=== PATIENT | male | born 1965 | race Hispanic/Latino ===

== ENCOUNTER 2018-05-08 17:05 | Emergency (ER) | payer SELFPAY ==
[~2018-05-08] VITALS: Ht 167.6 cm; Wt 81.6 kg
[~2018-05-08 17:05] MED LIST: ATIVAN1 MG ORAL; DILANTIN100 MG ORAL; DILANTIN30 MG ORAL
[2018-05-08] MEDS ORDERED: KEPPRA500 M4 ORAL ×2 (17:07→19:11)
[2018-05-08 17:22] VITALS: BP 148/74
[2018-05-08] MEDS ORDERED: LORazepam Inj 2mg/ml 1ml IV ONE (17:45)
[2018-05-08] MEDS ORDERED: levETIRAcetam 500 MG in D5W 110 ML IV ONE (17:45)
--- NOTE | 2018-05-08 17:45 | Emergency Room Report ---
History of Present Illness General Chief Complaint: Seizure Source: Patient, Medical Record, EMS Present Illness HPI 53-year-old male presents ED for evaluation. Status post seizure at bus stop today. Witnessed. No head injury. Upon arrival patient is alert oriented 3. History of seizure. Takes medication. Does not know the names of them. Patient drank alcohol yesterday and today. Possibly skipped his medication today. Denies headache. Denies fevers or chills. Denies neck stiffness. No other aggravating relieving factors. Denies any other associated symptoms Allergies: Coded Allergies: No Known Allergies (Unverified , 02/10/14) UNABLE TO ASSESS (Unverified , 05/08/18) Patient History Past Medical History: HTN, seizures Past Surgical History: none Pertinent Family History: none Social History: Denies: smoking, alcohol use, drug use Immunizations: UTD Reviewed Nursing Documentation: PMH: Agreed; PSxH: Agreed Nursing Documentation-PMH Past Medical History: No History, Except For Hx Hypertension: Yes History Of Psychiatric Problem: No - alcohol abuse Hx Seizures: Yes Review of Systems All Other Systems: negative except mentioned in HPI Physical Exam Vital Signs Date Time Temp Pulse Resp B/P (MAP) Pulse Ox O2 Delivery O2 Flow Rate FiO2 05/08/18 17:05 98.3 78 16 158/100 98 Room Air 98.2 05/08/18 17:22 2.0 Sp02 EP Interpretation: reviewed, normal General Appearance: no apparent distress, alert, GCS 15, non-toxic Head: normocephalic, atraumatic Eyes: bilateral eye normal inspection, bilateral eye PERRL ENT: hearing grossly normal, normal pharynx, no angioedema, normal voice Neck: full range of motion, supple/symm/no masses Respiratory: chest non-tender, lungs clear, normal breath sounds, speaking full sentences Cardiovascular #1: no edema, tachycardia Cardiovascular #2: 2+ carotid (R), 2+ carotid (L), 2+ radial (R), 2+ radial (L) , 2+ dorsalis pedis (R), 2+ dorsalis pedis (L) Gastrointestinal: normal bowel sounds, non tender, soft, non-distended, no guarding, no rebound Rectal: deferred Genitourinary: normal inspection, no CVA tenderness Musculoskeletal: back normal, gait/station normal, normal range of motion, non- tender Neurologic: alert, oriented x3, responsive, motor strength/tone normal, sensory intact, speech normal Psychiatric: judgement/insight normal, memory normal, mood/affect normal, no suicidal/homicidal ideation Reflexes: 3+ bicep (R), 3+ bicep (L), 3+ tricep (R), 3+ tricep (L), 3+ knee (R) , 3+ knee (L) Skin: normal color, no rash, warm/dry, well hydrated Lymphatic: no adenopathy Medical Decision Making Diagnostic Impression: Primary Impression: Alcohol abuse Additional Impression: Seizure disorder ER Course Hospital Course 53-year-old M presents to ED status post seizure. h/o ETOH abuse Differential diagnosis includes- breakthrough seizure, alcohol abuse, noncompliance with medication Clinical course Patient placed on stretcher. Initial history and physical I ordered labs, IV fluids, Keppra, CT brain EKG - sinus tachycardia, no acute ischemic changes interpreted by wy Labs-electrolytes okay, no leukocytosis, hemoglobin/hematocrit stable. Alcohol level < 3 Patient given Ativan, Keppra, IV fluids. Sinus tachycardia resolved. Patient allowed to rest is now awake alert oriented x3. ambulating without difficulty. Patient safe for discharge. Does not have a PMD. We'll provide PMD referrals. Provide prescriptions for Librium and Keppra Diagnosis - alcohol abuse, seizure disorder stable and discharged to home. Followup with PMD. Return to ED if symptoms recur or worsen Labs Test 05/08/18 17:23 White Blood Count 11.1 K/UL (4.8-10.8) Red Blood Count 5.15 M/UL (4.70-6.10) Hemoglobin 15.8 G/DL (14.2-18.0) Hematocrit 47.1 % (42.0-52.0) Mean Corpuscular Volume 91 FL (80-99) Mean Corpuscular Hemoglobin 30.6 PG (27.0-31.0) Mean Corpuscular Hemoglobin Concent 33.5 G/DL (32.0-36.0) Red Cell Distribution Width 12.2 % (11.6-14.8) Platelet Count 142 K/UL (150-450) Mean Platelet Volume 10.2 FL (6.5-10.1) Neutrophils (%) (Auto) 44.8 % (45.0-75.0) Lymphocytes (%) (Auto) 40.3 % (20.0-45.0) Monocytes (%) (Auto) 7.4 % (1.0-10.0) Eosinophils (%) (Auto) 6.4 % (0.0-3.0) Basophils (%) (Auto) 1.2 % (0.0-2.0) Sodium Level 143 MMOL/L (136-145) Potassium Level 4.0 MMOL/L (3.5-5.1) Chloride Level 106 MMOL/L (98-107) Carbon Dioxide Level 24 MMOL/L (21-32) Anion Gap 13 mmol/L (5-15) Blood Urea Nitrogen 11 mg/dL (7-18) Creatinine 1.4 MG/DL (0.55-1.30) Estimat Glomerular Filtration Rate 52.8 mL/min (>60) Glucose Level 148 MG/DL (74-106) Calcium Level 9.0 MG/DL (8.5-10.1) Total Bilirubin 0.3 MG/DL (0.2-1.0) Aspartate Amino Transf (AST/SGOT) 78 U/L (15-37) Alanine Aminotransferase (ALT/SGPT) 95 U/L (12-78) Alkaline Phosphatase 127 U/L (46-116) Total Protein 8.0 G/DL (6.4-8.2) Albumin 3.3 G/DL (3.4-5.0) Globulin 4.7 g/dL Albumin/Globulin Ratio 0.7 (1.0-2.7) Salicylates Level 0.9 ug/mL (2.8-20) Urine Opiates Screen Negative (NEGATIVE) Acetaminophen Level < 2 MCG/ML (10-30) Urine Barbiturates Screen Negative (NEGATIVE) Phenytoin (Dilantin) Level < 0.5 ug/mL (10-20) Phencyclidine (PCP) Screen Negative (NEGATIVE) Urine Amphetamines Screen Negative (NEGATIVE) Urine Benzodiazepines Screen Negative (NEGATIVE) Urine Cocaine Screen Negative (NEGATIVE) Urine Marijuana (THC) Screen Negative (NEGATIVE) Serum Alcohol < 3 mg/dL EKG Diagnostic Results Rate: tachycardiac Rhythm: NSR ST Segments: no acute changes ASA given to the pt in ED: No Rhythm Strip Diag. Results EP Interpretation: yes Rhythm: NSR, no PVC's, no ectopy Last Vital Signs Date Time Temp Pulse Resp B/P (MAP) Pulse Ox O2 Delivery O2 Flow Rate FiO2 05/08/18 17:22 117 30 Room Air 05/08/18 17:22 98.2 148/74 96 2.0 98.2 Status: improved Disposition: HOME, SELF-CARE Condition: Stable Scripts Levetiracetam (KEPPRA) 500 Mg Tablet 500 MG ORAL EVERY 12 HOURS for 7 Days, TAB 0 Refills Prov: Tayo Blair MD 05/08/18 Chlordiazepoxide (Chlordiazepoxide HCl) 25 Mg Capsule 25 MG ORAL THREE TIMES A DAY, #15 CAP 0 Refills Prov: Tayo Blair MD 05/08/18 Referrals: NOT CHOSEN IPA/,REFERRING (PCP) Tayo Blair MD May 08, 2018 17:45
[2018-05-08 17:47] LABS: ANION GAP 13 mmol/L (5-15); BLOOD UREA NITROGEN 11 mg/dL (7-18); CARBON DIOXIDE 24 MMOL/L (21-32); CHLORIDE 106 MMOL/L (98-107); CREATININE 1.4 MG/DL (0.55-1.30); SODIUM 143 MMOL/L (136-145)
[2018-05-08 17:50] LABS: BASOPHILS % (AUTO) 1.2 % (0.0-2.0); EOSINOPHILS % (AUTO) 6.4 % (0.0-3.0); HEMATOCRIT 47.1 % (42.0-52.0); HEMOGLOBIN 15.8 G/DL (14.2-18.0); LYMPHOCYTES % (AUTO) 40.3 % (20.0-45.0); MEAN CORPUSCULAR VOLUME 91 FL (80-99); MONOCYTES % (AUTO) 7.4 % (1.0-10.0); NEUTROPHILS % (AUTO) 44.8 % (45.0-75.0); PLATELET COUNT 142 K/UL (150-450); RED BLOOD COUNT 5.15 M/UL (4.70-6.10); RED CELL DISTRIBUTION WIDTH 12.2 % (11.6-14.8); WHITE BLOOD COUNT 11.1 K/UL (4.8-10.8)
[2018-05-08 17:53] LABS: ALANINE AMINOTRANSFERASE 95 U/L (12-78); ALBUMIN 3.3 G/DL (3.4-5.0); ALBUMIN/GLOBULIN RATIO 0.7 (1.0-2.7); ALKALINE PHOSPHATASE 127 U/L (46-116); ASPARTATE AMINO TRANSFERASE 78 U/L (15-37); BILIRUBIN,TOTAL 0.3 MG/DL (0.2-1.0)
[2018-05-08] MEDS ORDERED: LIBRIUM25 MG ORAL (19:11)
[2018-05-08 19:27] VITALS: BP 133/76
== END 2018-05-08 19:27 | disposition home or self-care (01) ==
LOC: EDBD 17:05 → EMR 17:26
DX: F10.10 Alcohol abuse, uncomplicated (principal); G40.909 Epilepsy, unspecified, not intractable, without status epilepticus; I10 Essential (primary) hypertension
CPT/HCPCS: 36415; 80053; 80185; 80307; 85025; 93005; 96361; 96365; 96375; 99284; G0480; J1953; 80329

== ENCOUNTER 2018-10-04 11:55 | Emergency (ER) | payer MEDICARE ==
[~2018-10-04] VITALS: Ht 170.2 cm; Wt 99.8 kg
[~2018-10-04 11:55] MED LIST changes: +KEPPRA500 M4 ORAL; +LIBRIUM25 MG ORAL
--- NOTE | 2018-10-04 12:05 | NUR ---
ED Nurse Note: Pt brought in by ambulance from the street due to S/P seizure x 60 second and witnessed by bystanders/friends. No head and oral trauma. Pt came in AAO x4, following commands with non labored breathing. Sinus tach on the monitor.
[2018-10-04] MEDS ORDERED: Phenytoin 500 MG in NS 110 ML IV ONE (12:15)
[2018-10-04] MEDS ORDERED: LORazepam Inj 2mg/ml 1ml IV ONE (12:15)
[2018-10-04] MEDS ORDERED: Phenytoin 100mg cap ORAL ONE (12:15)
[2018-10-04] MEDS ORDERED: levETIRAcetam 500 MG in D5W 110 ML IV ONE (12:15)
--- NOTE | 2018-10-04 12:17 | Emergency Room Report ---
History of Present Illness General Chief Complaint: Seizure Source: Patient Present Illness HPI 53yo M w/ h/o sz disorder with a seizure disorder presents with witnessed seizure, reports he only takes Dilantin, not Keppra. Also reports she's been compliant with it. He does appear somewhat postictal and slightly confused. Allergies: Coded Allergies: No Known Allergies (Unverified , 02/10/14) UNABLE TO ASSESS (Unverified , 05/08/18) Patient History Limited by: medical condition Past Medical History: see triage record Reviewed Nursing Documentation: PMH: Agreed; PSxH: Agreed Nursing Documentation-PMH Past Medical History: No History, Except For Hx Hypertension: Yes Hx Seizures: Yes Review of Systems All Other Systems: negative except mentioned in HPI Physical Exam Vital Signs Date Time Temp Pulse Resp B/P (MAP) Pulse Ox O2 Delivery O2 Flow Rate FiO2 10/04/18 11:55 98.6 118 20 154/91 96 Room Air Sp02 EP Interpretation: reviewed, normal General Appearance: no apparent distress, alert, non-toxic Head: normocephalic Eyes: bilateral eye normal inspection, bilateral eye PERRL, bilateral eye EOMI ENT: normal ENT inspection, hearing grossly normal, normal pharynx, no angioedema, normal voice, moist mucus membranes Neck: normal inspection, full range of motion, supple, supple/symm/no masses Respiratory: chest non-tender, lungs clear, normal breath sounds, chest symmetrical, palpation of chest normal Cardiovascular #1: normal peripheral pulses, regular rate, rhythm, tachycardia Cardiovascular #2: 2+ radial (R), 2+ radial (L) Gastrointestinal: normal inspection, non tender, soft, no mass, no guarding, no rebound Rectal: deferred Genitourinary: normal inspection, no CVA tenderness Musculoskeletal: back normal, gait/station normal, normal range of motion, non- tender, no calf tenderness Neurologic: alert, responsive, casing puller III-XII nml as tested, motor strength/tone normal, sensory intact, speech normal Psychiatric: mood/affect normal Skin: normal color, no rash, warm/dry, normal turgor Lymphatic: no adenopathy Medical Decision Making Homeless Attestation I, The treating physician Dr. Blackman, has assessed and agrees that patient is medically stable for discharge to an outpatient disposition. Diagnostic Impression: Primary Impression: Seizure disorder ER Course Patient was given IV and by mouth Dilantin, as his Dilantin level was undetectable. His heart rate improved with Ativan, I suspect he was postictal. He will be discharged. Diagnosis of medication noncompliance causing breakthrough seizure. EKG Diagnostic Results EKG Time: 12:20 EP Interpretation: no st-t changes, no twi's Rate: tachycardiac Rhythm: NSR ST Segments: no acute changes ASA given to the pt in ED: No Rhythm Strip Diag. Results Rhythm Strip Time: 13:19 EP Interpretation: yes Rate: 105 Rhythm: NSR Last Vital Signs Date Time Temp Pulse Resp B/P (MAP) Pulse Ox O2 Delivery O2 Flow Rate FiO2 10/04/18 11:55 98.6 118 20 154/91 96 Room Air Disposition: HOME, SELF-CARE Condition: Stable FRANCA BLACKMAN M.D Oct 04, 2018 12:17
[2018-10-04 12:30] VITALS: BP 126/74
--- NOTE | 2018-10-04 13:15 | NUR ---
ED Nurse Note: Called pharmacy for oral dilantin meds.
[2018-10-04 13:32] LABS: BASOPHILS % (AUTO) 1.2 % (0.0-2.0); EOSINOPHILS % (AUTO) 4.6 % (0.0-3.0); HEMATOCRIT 49.4 % (42.0-52.0); HEMOGLOBIN 15.5 G/DL (14.2-18.0); LYMPHOCYTES % (AUTO) 52.3 % (20.0-45.0); MEAN CORPUSCULAR VOLUME 97 FL (80-99); MONOCYTES % (AUTO) 9.4 % (1.0-10.0); NEUTROPHILS % (AUTO) 32.5 % (45.0-75.0); PLATELET COUNT 178 K/UL (150-450); RED CELL DISTRIBUTION WIDTH 13.4 % (11.6-14.8); WHITE BLOOD COUNT 12.8 K/UL (4.8-10.8)
[2018-10-04 13:35] LABS: ANION GAP 24 mmol/L (5-15); BLOOD UREA NITROGEN 10 mg/dL (7-18); CALCIUM 9.3 MG/DL (8.5-10.1); CARBON DIOXIDE 15 MMOL/L (21-32); CHLORIDE 102 MMOL/L (98-107); CREATININE 1.3 MG/DL (0.55-1.30); POTASSIUM 4.2 MMOL/L (3.5-5.1); SODIUM 141 MMOL/L (136-145)
--- NOTE | 2018-10-04 14:20 | NUR ---
ED Nurse Note: Pt resting on his bed with no acute distress. Sinus tach on the environmental monitoring specialist.
[2018-10-04 14:28] VITALS: BP 112/76
[2018-10-04] MEDS ORDERED: DILANTIN100 MG ORAL (14:29)
[2018-10-04 14:45] VITALS: BP 119/59
--- NOTE | 2018-10-04 14:45 | NUR ---
ED Nurse: Pt cleared by ER MD for discharge. Homeless DC papers signed and understood by pt. DC instructions/prescription given and explained to pt and verbalized understanding of teachings. ID band/IV removed. Pt is AAO x4, ambulatory and left with all belongings.
== END 2018-10-04 14:45 | disposition home or self-care (01) ==
LOC: EDUNIT# 11:55 → EDBD 11:55 → EMR 12:30
DX: G40.909 Epilepsy, unspecified, not intractable, without status epilepticus (principal); Z79.899 Other long term (current) drug therapy; I10 Essential (primary) hypertension
CPT/HCPCS: 36415; 80048; 80185; 82962; 85025; 93005; 96361; 96365; 96375; 99284; G0480; J1165; J1953; 80329

== ENCOUNTER → 2019-06-23 | Emergency (ER) | payer SELFPAY ==
[~2019-06-23] VITALS: Ht 172.7 cm; Wt 113.4 kg
[~2019-06-23] MED LIST changes: +Phenytoin 500 MG in NS 110 ML IVPB ONE; +levETIRAcetam 1,000mg/NS100ml 100 ML IVPB ONE
--- NOTE | 2019-06-23 13:25 | NUR ---
ED Nurse Note: [place] [address] [place], per ems, bystanders called as he was found unconsciousness with oral trauma, at this time, bleeding subsided. patient is reponsive to pain, nonverbal at this time. patient placed on a hospital gown, patient placed on a monitor. RICKY cox at bedside.
[2019-06-23 13:40] VITALS: BP 138/65
--- NOTE | 2019-06-23 13:44 | Emergency Room Report ---
History of Present Illness General Chief Complaint: Seizure Source: Medical Record, EMS Present Illness HPI 54-year-old male history of epilepsy history of seizures presents with altered mental status after witnessed seizure in the parking lot, patient is currently confused, unknown if compliant with Dilantin, occurrence just prior to arrival, no known aggravating relieving factors severity was severe, possibly lasting minutes, glucose in the field was 140 Allergies: Coded Allergies: No Known Allergies (Unverified , 02/10/14) UNABLE TO ASSESS (Unverified , 05/08/18) Patient History Limited by: medical condition - Postictal Past Medical History: see triage record Reviewed Nursing Documentation: PMH: Agreed; PSxH: Agreed Nursing Documentation-PMH Hx Hypertension: Yes Hx Seizures: Yes Review of Systems All Other Systems: limited - Postictal Physical Exam Vital Signs Date Time Temp Pulse Resp B/P (MAP) Pulse Ox O2 Delivery O2 Flow Rate FiO2 06/23/19 13:18 98.8 121 22 138/65 (89) 98 Room Air Sp02 EP Interpretation: reviewed, normal General Appearance: no apparent distress, non-toxic Head: normocephalic, atraumatic Eyes: bilateral eye PERRL, bilateral eye EOMI ENT: uvula midline, moist mucus membranes Neck: supple, thyroid normal, supple/symm/no masses Respiratory: lungs clear, no respiratory distress, no retraction, no accessory muscle use Cardiovascular #1: normal peripheral pulses, no edema, no gallop, no murmur, tachycardia Gastrointestinal: non tender, soft, no guarding, no rebound Musculoskeletal: normal inspection Neurologic: alert, responsive, other - Moving all 4 extremities Psychiatric: other - Confused Skin: no rash, warm/dry Medical Decision Making Diagnostic Impression: Primary Impression: Epileptic seizure, generalized Additional Impression: Non compliance with medical treatment ER Course 54 year old male hx of epilepsy, patient presents with recurrent sz Labs show non compliance with medications Keppra load, Phenytoin load Patient reevaluation 2:57 PM, patient is back to baseline Counseled patient that it is very important that he take his seizure medication because He may fall hit his head and have a brain bleed, patient is aware he states he just cannot afford the medication Disposition home with return precautions negative imaging, Laboratory Tests Test 06/23/19 13:30 White Blood Count 12.6 K/UL (4.8-10.8) H Red Blood Count 4.58 M/UL (4.70-6.10) L Hemoglobin 14.6 G/DL (14.2-18.0) Hematocrit 45.8 % (42.0-52.0) Mean Corpuscular Volume 100 FL (80-99) H Mean Corpuscular Hemoglobin 31.8 PG (27.0-31.0) H Mean Corpuscular Hemoglobin Concent 31.8 G/DL (32.0-36.0) L Red Cell Distribution Width 14.3 % (11.6-14.8) Platelet Count 125 K/UL (150-450) L Mean Platelet Volume 8.0 FL (6.5-10.1) Neutrophils (%) (Auto) 73.4 % (45.0-75.0) Lymphocytes (%) (Auto) 14.9 % (20.0-45.0) L Monocytes (%) (Auto) 8.7 % (1.0-10.0) Eosinophils (%) (Auto) 1.2 % (0.0-3.0) Basophils (%) (Auto) 1.9 % (0.0-2.0) Sodium Level 137 MMOL/L (136-145) Potassium Level 3.9 MMOL/L (3.5-5.1) Chloride Level 104 MMOL/L (98-107) Carbon Dioxide Level 16 MMOL/L (21-32) L Anion Gap 17 mmol/L (5-15) H Blood Urea Nitrogen 10 mg/dL (7-18) Creatinine 1.2 MG/DL (0.55-1.30) Estimate Glomerular Filtration Rate > 60 mL/min (>60) Glucose Level 134 MG/DL (74-106) H Calcium Level 8.2 MG/DL (8.5-10.1) L Total Bilirubin 3.0 MG/DL (0.2-1.0) H Direct Bilirubin 1.3 MG/DL (0.0-0.3) H Aspartate Amino Transferase (AST) 109 U/L (15-37) H Alanine Aminotransferase (ALT) 56 U/L (12-78) Alkaline Phosphatase 221 U/L (46-116) H Troponin I 0.010 ng/mL (0.000-0.056) Total Protein 8.9 G/DL (6.4-8.2) H Albumin 2.1 G/DL (3.4-5.0) L Globulin 6.8 g/dL Albumin/Globulin Ratio 0.3 (1.0-2.7) L Lipase 260 U/L (73-393) Salicylates Level < 0.2 ug/mL (2.8-20) L Acetaminophen Level < 2 MCG/ML (10-30) L Phenytoin (Dilantin) Level < 0.5 ug/mL (10-20) L Valproic Acid Level < 3 MCG/ML (50-100) L Carbamazepine (Tegretol) Level < 0.5 ug/mL (4.0-12.0) L Phenobarbital Level < 1.0 ug/mL (15-40) L Serum Alcohol < 3 mg/dL EKG Diagnostic Results EKG Time: 14:02 EP Interpretation: Sinus tachycardia, rate 107, QTc 558, no acute ST elevations , normal axis Rhythm Strip Diag. Results Rhythm Strip Time: 14:16 EP Interpretation: yes Rate: 104 Rhythm: other - Sinus Tachycardia Chest X-Ray Diagnostic Results Chest X-Ray Diagnostic Results : Chest X-Ray Ordered: Yes # of Views/Limited/Complete: 1 View Indication: Other - AMS EP Interpretation: Yes Interpretation: no consolidation, no effusion, no pneumothorax, no acute cardiopulmonary disease Impression: No acute disease Electronically Signed by: Alexi Esparza MD CT/MRI/US Diagnostic Results CT/MRI/US Diagnostic Results : Impression CT head: No acute processes CT C-spine: No acute processes Last Vital Signs Date Time Temp Pulse Resp B/P (MAP) Pulse Ox O2 Delivery O2 Flow Rate FiO2 06/23/19 13:40 98.8 95 22 138/65 98 Room Air Disposition: HOME, SELF-CARE Condition: Stable Scripts Levetiracetam (KEPPRA) 500 Mg Tablet 500 MG ORAL EVERY 12 HOURS for 30 Days, #60 TAB 0 Refills Prov: Alexi Esparza MD 06/23/19 Phenytoin Sodium Extended* (DILANTIN*) 100 Mg Capsule 100 MG ORAL THREE TIMES A DAY, #90 CAP 0 Refills Prov: Alexi Esparza MD 06/23/19 Referrals: [facility] [place] [facility] Patient Instructions: Seizure, Adult Additional Instructions: The patient was provided with discharge instructions, notified to follow-up with a primary care doctor and or specialist in the next 24-48 hours, and to return to the ED if they have worsening of their symptoms. Please note that this report is being documented using [employer] technology. This can lead to erroneous entry secondary to incorrect interpretation by the dictating instrument. Alexi Esparza MD Jun 23, 2019 13:43
--- NOTE | 2019-06-23 13:45 | NUR ---
ED Nurse Note: patient taken to CT via gurney with FURNACE SETTERWHITLEY YANG
[2019-06-23 13:49] LABS: BASOPHILS % (AUTO) 1.9 % (0.0-2.0); EOSINOPHILS % (AUTO) 1.2 % (0.0-3.0); HEMATOCRIT 45.8 % (42.0-52.0); HEMOGLOBIN 14.6 G/DL (14.2-18.0); LYMPHOCYTES % (AUTO) 14.9 % (20.0-45.0); MEAN CORPUSCULAR VOLUME 100 FL (80-99); MONOCYTES % (AUTO) 8.7 % (1.0-10.0); NEUTROPHILS % (AUTO) 73.4 % (45.0-75.0); PLATELET COUNT 125 K/UL (150-450); RED BLOOD COUNT 4.58 M/UL (4.70-6.10); RED CELL DISTRIBUTION WIDTH 14.3 % (11.6-14.8); WHITE BLOOD COUNT 12.6 K/UL (4.8-10.8)
--- NOTE | 2019-06-23 14:00 | NUR ---
ED Nurse Note: patient came back from ct, patient placed back on the monitor.
--- NOTE | 2019-06-23 14:04 | Diagnostic Imaging Report ---
Indication: Cough Technique: One view of the chest Comparison: none Findings: Lungs and pleural spaces are clear. The heart size is normal. Impression: No acute process
[2019-06-23 14:11] LABS: ANION GAP 17 mmol/L (5-15); BLOOD UREA NITROGEN 10 mg/dL (7-18); CALCIUM 8.2 MG/DL (8.5-10.1); CARBON DIOXIDE 16 MMOL/L (21-32); CHLORIDE 104 MMOL/L (98-107); CREATININE 1.2 MG/DL (0.55-1.30); POTASSIUM 3.9 MMOL/L (3.5-5.1); SODIUM 137 MMOL/L (136-145)
[2019-06-23 14:20] LABS: ALANINE AMINOTRANSFERASE 56 U/L (12-78); ALBUMIN 2.1 G/DL (3.4-5.0); ALBUMIN/GLOBULIN RATIO 0.3 (1.0-2.7); ALKALINE PHOSPHATASE 221 U/L (46-116); ASPARTATE AMINO TRANSFERASE 109 U/L (15-37)
[2019-06-23 14:22] LABS: BILIRUBIN,DIRECT 1.3 MG/DL (0.0-0.3)
--- NOTE | 2019-06-23 14:26 | Diagnostic Imaging Report ---
Indications: Altered mental status Technique: Spiral acquisitions obtained through the brain. Angled axial and coronal 5 x 5 mm slices were reconstructed. Total dose length product 1794 mGycm. CTDI vol(s) 74 mGy. Dose reduction achieved using automated exposure control Comparison: None. Findings: No acute intracranial hemorrhage or edema. No mass effect nor midline shift. Normal christiansen-white differentiation. Prominent cisterna magna, otherwise normal size ventricles and extra axial CSF spaces. Visualized orbits and sinuses are unremarkable. The mastoids are clear. Intact calvarium Impression: Negative The CT scanner at [facility] is accredited by the [employer] and the scans are performed using protocols designed to limit radiation exposure to as low as reasonably achievable to attain images of sufficient resolution adequate for diagnostic evaluation.
[2019-06-23 14:59] VITALS: BP 134/73
--- NOTE | 2019-06-23 15:02 | NUR ---
ED Nurse Note: [facility]A SENT TO LAB
--- NOTE | 2019-06-23 15:02 | NUR ---
HAND-OFF: Report given to JENNIFER/FRANCES MENDEZ.
[2019-06-23 15:22] LABS: APPEARANCE,URINE SLIGHTLY CLOUDY; BILIRUBIN, URINE NEGATIVE (NEGATIVE); GLUCOSE, URINE (UA) NEGATIVE (NEGATIVE); KETONES,URINE 1+ (NEGATIVE); LEUKOCYTE ESTERASE ,URINE NEGATIVE (NEGATIVE); NITRITE,URINE NEGATIVE (NEGATIVE); PH,URINE 5 (4.5-8.0); PROTEIN,URINE 2+ (NEGATIVE); UROBILINOGEN,URINE 4 MG/DL (0.0-1.0)
--- NOTE | 2019-06-23 15:32 | Diagnostic Imaging Report ---
Indication: Trauma, pain Technique: Spiral acquisitions obtained through the cervical spine. No IV contrast utilized. Multiplanar reconstructions were generated. Total dose length product 244 and 639 mGycm. CTDIvol(s) 9 and 34 mGy. Dose reduction achieved using automated exposure control. Comparison: none Findings: Bony alignment is normal. No prevertebral soft tissue swelling. Vertebral body heights are preserved. No acute fractures. No dislocations. At C5-6, there is mild degenerative disc narrowing. There is severe bilateral neural foraminal stenosis. Posterior disc bulge/osteophyte complex results in at least moderate stenosis. There is questionably a posterior disc protrusion at this level although this finding is probably artifactual; if real, however, there may be significant spinal canal narrowing. At C6-7, there is mild degenerative disc narrowing. There is mild circumferential annular bulge and posterior osteophyte complex which results in mild narrowing of the spinal canal. Posterior osteophytes may also slightly impinge upon the left lateral recess. There is mild narrowing of the left neural foramen. At the remaining disc levels, no significant disc bulge or protrusion, spinal stenosis, or neural foraminal narrowing. Cervical nodes are abundant and prominent. The thyroid is unremarkable. The included lung apices are clear. The included upper aerodigestive tract is unremarkable. Impression: No acute bony trauma Degenerative changes as described above. Note that there is questionably significant posterior disc protrusion at C5-6. Suspect artifactual, but if real this may result in significant spinal canal stenosis The CT scanner at [facility] is accredited by the [employer] and the scans are performed using protocols designed to limit radiation exposure to as low as reasonably achievable to attain images of sufficient resolution adequate for diagnostic evaluation.
[2019-06-23 15:43] LABS: COLOR,URINE YELLOW
[2019-06-23 16:59] VITALS: BP 126/66
--- NOTE | 2019-06-24 16:24 | Cardiology Report ---
APPROVED REPORT EKG Measurement Heart [id number] Sinus tachycardia Possible Left atrial enlargement Nonspecific ST abnormality Prolonged QT Abnormal ECG
== END | disposition home or self-care (01) ==
LOC: EDUNIT# 13:15 → EDBD 13:25 → EMR 14:15
DX: G40.909 Epilepsy, unspecified, not intractable, without status epilepticus (principal); I10 Essential (primary) hypertension; Z91.14 Patient's other noncompliance with medication regimen; R00.0 Tachycardia, unspecified
CPT/HCPCS: 36415; 70450; 71045; 72125; 80053; 80156; 80164; 80184; 80185; 80307; 81003; 82248; 83690; 84484; 85025; 87086; 93005; 96361; 96365; 96375; 99284; G0480; J1165; J1953; J7030

== ENCOUNTER 2019-06-30 11:42 | Emergency (ER) | payer SELFPAY ==
[~2019-06-30] VITALS: Ht 172.7 cm; Wt 83.9 kg
[~2019-06-30 11:42] MED LIST changes: -Phenytoin 500 MG in NS 110 ML IVPB ONE; -levETIRAcetam 1,000mg/NS100ml 100 ML IVPB ONE
[2019-06-30 11:45] VITALS: BP 135/82
--- NOTE | 2019-06-30 11:45 | NUR ---
ED Nurse Note: Pt brought in by JAMISON [facility] [address] for etoh intoxication. HANNAHD states they [place] up pt from the alley. JAMISON notes blood sugar en route at 125. Pt denies drinking any alcohol today and cannot state when his last drink was. Pt is aox4, breathing normal, speaking in full sentences and ambulatory with steady gait. Will continue to monitor.
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
--- NOTE | 2019-06-30 13:21 | NUR ---
ED Nurse Note: Pt labs drawn, sent to lab and radio officer took pt to CT.
[2019-06-30 13:45] VITALS: BP 148/76
--- NOTE | 2019-06-30 13:45 | Diagnostic Imaging Report ---
Indications: Altered mental status Technique: Spiral acquisitions obtained through the brain. Angled axial and coronal 5 x 5 mm slices were reconstructed. Total dose length product 1363 mGycm. CTDI vol(s) 62 mGy. Dose reduction achieved using automated exposure control Comparison: None. Findings: No acute intracranial hemorrhage or edema. No mass effect nor midline shift. Normal christiansen-white differentiation. Normal size ventricles and extra-axial CSF spaces. Visualized orbits and sinuses are unremarkable. The calvarium is intact. Impression: Negative. No acute intracranial bleed or mass effect. The CT scanner at [facility] is accredited by the [employer] and the scans are performed using protocols designed to limit radiation exposure to as low as reasonably achievable to attain images of sufficient resolution adequate for diagnostic evaluation.
[2019-06-30 13:57] LABS: ANION GAP 8 mmol/L (5-15); BLOOD UREA NITROGEN 8 mg/dL (7-18); CALCIUM 8.2 MG/DL (8.5-10.1); CARBON DIOXIDE 22 MMOL/L (21-32); CHLORIDE 104 MMOL/L (98-107); CREATININE 0.8 MG/DL (0.55-1.30); POTASSIUM 4.7 MMOL/L (3.5-5.1); SODIUM 134 MMOL/L (136-145)
[2019-06-30 13:58] LABS: HEMOGLOBIN 12.4 G/DL (14.2-18.0); MEAN CORPUSCULAR VOLUME 97 FL (80-99); PLATELET COUNT 17 K/UL (150-450); RED BLOOD COUNT 3.84 M/UL (4.70-6.10); RED CELL DISTRIBUTION WIDTH 13.9 % (11.6-14.8); WHITE BLOOD COUNT 7.1 K/UL (4.8-10.8)
--- NOTE | 2019-06-30 14:40 | NUR ---
ED Nurse Note: Pt able to ambulate with steady gait to restroom.
--- NOTE | 2019-06-30 14:55 | NUR ---
ED Nurse Note: Pt platelet count noted at 17. Blood redraw done at bedside and sent blood specimen to lab.
[2019-06-30 15:17] LABS: BASOPHILS % (AUTO) 1.9 % (0.0-2.0); EOSINOPHILS % (AUTO) 2.3 % (0.0-3.0); HEMATOCRIT 38.2 % (42.0-52.0); HEMOGLOBIN 13.5 G/DL (14.2-18.0); LYMPHOCYTES % (AUTO) 19.9 % (20.0-45.0); MEAN CORPUSCULAR VOLUME 92 FL (80-99); MONOCYTES % (AUTO) 8.3 % (1.0-10.0); NEUTROPHILS % (AUTO) 67.6 % (45.0-75.0); PLATELET COUNT 103 K/UL (150-450); RED BLOOD COUNT 4.13 M/UL (4.70-6.10); RED CELL DISTRIBUTION WIDTH 12.4 % (11.6-14.8); WHITE BLOOD COUNT 9.5 K/UL (4.8-10.8)
--- NOTE | 2019-06-30 15:36 | NUR ---
ED Nurse Note: Upon waiting for pt repeat lab, pt was found with snoring respirations and unresponsive. OPA was placed by ERMFlor. IV site established. Pt returned to normal breathing pattern, vss and began infusing Keppra. Will wait for further orders by ERMFlor.
[2019-06-30 15:40] VITALS: BP 120/47
[2019-06-30] MEDS ORDERED: levETIRAcetam 1,000mg/NS100ml 100 ML IVPB ONE (15:45)
--- NOTE | 2019-06-30 16:20 | NUR ---
ED Nurse Note: Pt is awake, alert and oriented x4 at this time, resting comfortably in bed. Pt breathing is normal and unlabored. Will continue to monitor.
[2019-06-30] MEDS ORDERED: KEPPRA500 M4 ORAL (16:35)
[2019-06-30] MEDS ORDERED: FOLIC ACID1 MG ORAL (16:36)
[2019-06-30] MEDS ORDERED: VITAMIN B-1100 MG ORAL (16:36)
[2019-06-30 16:45] VITALS: BP 128/65
--- NOTE | 2019-06-30 16:45 | NUR ---
ED Nurse Note: Pt cleared by ERMD for discharge after monitoring. DC instructions/prescription was given and explained to pt. Pt verbalized understanding of discharge instructions. Pt verbalized back instructions and importance of medication compliance to ERMD and nurse two seperate times. ID band and IV removed. Pt is AAO x4, ambulatory with steady gait and left with all personal belongings.
== END 2019-06-30 16:45 | disposition home or self-care (01) ==
LOC: EDBD 11:42 → EDUNIT# 11:42 → EMR 13:53
DX: F10.129 Alcohol abuse with intoxication, unspecified (principal); G40.909 Epilepsy, unspecified, not intractable, without status epilepticus; D69.6 Thrombocytopenia, unspecified
CPT/HCPCS: 36415; 70450; 80048; 85007; 85025; 96374; 99284

== ENCOUNTER 2020-01-12 09:38 | Emergency (ER) | payer SELFPAY ==
[~2020-01-12] VITALS: Ht 175.3 cm; Wt 99.8 kg
[~2020-01-12 09:38] MED LIST changes: +FOLIC ACID1 MG ORAL; +VITAMIN B-1100 MG ORAL
[2020-01-12 09:41] VITALS: BP 125/56
[2020-01-12] MEDS ORDERED: levETIRAcetam 500mg/NS100ml 110 ML IV ONE (10:00)
[2020-01-12] MEDS ORDERED: LORazepam Inj 2mg/ml 1ml IV ONE (10:00)
[2020-01-12 10:31] LABS: HEMATOCRIT 40.4 % (42.0-52.0); HEMOGLOBIN 12.6 G/DL (14.2-18.0); MEAN CORPUSCULAR VOLUME 99 FL (80-99); PLATELET COUNT 64 K/UL (150-450); RED BLOOD COUNT 4.09 M/UL (4.70-6.10); RED CELL DISTRIBUTION WIDTH 17.2 % (11.6-14.8); WHITE BLOOD COUNT 6.5 K/UL (4.8-10.8)
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
[2020-01-12 10:40] LABS: ANION GAP 15 mmol/L (5-15); BLOOD UREA NITROGEN 11 mg/dL (7-18); CALCIUM 8.1 MG/DL (8.5-10.1); CARBON DIOXIDE 19 MMOL/L (21-32); CHLORIDE 105 MMOL/L (98-107); POTASSIUM 3.5 MMOL/L (3.5-5.1); SODIUM 138 MMOL/L (136-145)
--- NOTE | 2020-01-12 10:46 | Diagnostic Imaging Report ---
EXAM: CT CT Head no Contrast INDICATION: Seizure. TECHNIQUE: Axial images of the brain were obtained with subsequent sagittal and coronal reformats. All CT scans at this facility are performed using dose modulation techniques as appropriate to a performed exam including the following: automated exposure control with adjustment of the mA and/or kV according to patient size. COMPARISON STUDY: None. RADIATION DOSE: CTDIvol: 53.4 mGy DLP: 1098.9 mGy-cm Dose information generated by the CT scanner is available in PACS. FINDINGS: There is normal symmetry and normal christiansen-white differentiation. There is no acute large territory cortical infarct, hemorrhage, mass effect or shift. Ventricles and cisterns as well as brainstem and posterior fossa appear unremarkable. The sellar region is normal. There is an old fracture medial wall right orbit. Minimal mucosal thickening noted in the ethmoid air cells. There is a small amount of fluid in the left mastoid. Bony calvarium intact. IMPRESSION: No acute intracranial abnormality. Old fracture medial wall right orbit. Mild ethmoid and left mastoid airspace disease.
[2020-01-12 10:52] LABS: ALANINE AMINOTRANSFERASE 64 U/L (12-78); ALBUMIN 2.4 G/DL (3.4-5.0); ALBUMIN/GLOBULIN RATIO 0.5 (1.0-2.7); ALKALINE PHOSPHATASE 266 U/L (46-116); ASPARTATE AMINO TRANSFERASE 94 U/L (15-37); BILIRUBIN,TOTAL 2.8 MG/DL (0.2-1.0)
[2020-01-12 11:32] LABS: BILIRUBIN,DIRECT 1.4 MG/DL (0.0-0.3)
[2020-01-12 14:18] VITALS: BP 125/56
== END 2020-01-12 14:18 | disposition home or self-care (01) ==
LOC: EDBD 09:38 → EMR 10:42
DX: G40.909 Epilepsy, unspecified, not intractable, without status epilepticus (principal); I10 Essential (primary) hypertension; R00.0 Tachycardia, unspecified
CPT/HCPCS: 36415; 70450; 80053; 82248; 82962; 85007; 85025; 93005; 96361; 96374; 96375; 99284; G0480; J1953; J7030

== ENCOUNTER 2020-02-07 12:06 | Inpatient (IN) | payer MEDICAID ==
[~2020-02-07] VITALS: Ht 170.2 cm; Wt 105.0 kg
[2020-02-07 12:11] VITALS: BP 150/96
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
--- NOTE | 2020-02-07 12:12 | NUR ---
ED Nurse Note: ERMD aware of pt's conditon.
[2020-02-07] MEDS ORDERED: Morphine Sulfate 4mg/ml Inj (IV USE ONLY) IVP ONE (12:30)
[2020-02-07] MEDS ORDERED: Thiamine 100mg tab ORAL ONE (12:30)
[2020-02-07] MEDS ORDERED: Tetanus/Diptheria/Pertussis IM ONE (12:30)
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
[2020-02-07 12:47] LABS: HEMATOCRIT 37.7 % (42.0-52.0); HEMOGLOBIN 12.3 G/DL (14.2-18.0); MEAN CORPUSCULAR VOLUME 96 FL (80-99); PLATELET COUNT 63 K/UL (150-450); RED BLOOD COUNT 3.93 M/UL (4.70-6.10); RED CELL DISTRIBUTION WIDTH 15.9 % (11.6-14.8)
--- NOTE | 2020-02-07 12:55 | NUR ---
ED Nurse Note: Pt came back from CT in stable condition.
[2020-02-07 12:59] LABS: ANION GAP 7 mmol/L (5-15); BLOOD UREA NITROGEN 5 mg/dL (7-18); CALCIUM 8.3 MG/DL (8.5-10.1); CARBON DIOXIDE 28 MMOL/L (21-32); CHLORIDE 103 MMOL/L (98-107); POTASSIUM 3.6 MMOL/L (3.5-5.1); SODIUM 138 MMOL/L (136-145)
--- NOTE | 2020-02-07 13:03 | Diagnostic Imaging Report ---
EXAM: CT Head Without Intravenous Contrast CLINICAL HISTORY: PAIN TECHNIQUE: Axial computed tomography images of the head/brain without intravenous contrast. CTDI is 68.7 mGy and DLP is 1368.4 mGy-cm. One or more of the following dose reduction techniques were used: automated exposure control, adjustment of the mA and/or kV according to patient size, use of iterative reconstruction technique. COMPARISON: 01/12/20. FINDINGS: Brain: No intracranial hemorrhage or mass effect.. Ventricles: Unremarkable. No ventriculomegaly. Bones/joints: Unremarkable. No acute fracture. Soft tissues: Forehead contusions. Sinuses: Please see separately dictated facial CT. Mastoid air cells: Unremarkable as visualized. No mastoid effusion. IMPRESSION: No acute brain or skull injury. Please see separately dictated facial CT for other findings
--- NOTE | 2020-02-07 13:09 | Diagnostic Imaging Report ---
EXAM: CT Maxillofacial Without Intravenous Contrast CLINICAL HISTORY: PAIN TECHNIQUE: Axial computed tomography images of the face without intravenous contrast. CTDI is 10.5 mGy and DLP is 233.8 mGy-cm. One or more of the following dose reduction techniques were used: automated exposure control, adjustment of the mA and/or kV according to patient size, use of iterative reconstruction technique. COMPARISON: Facial CT of 04/02/[address] of 01/12/20 FINDINGS: There is a chronic fracture deformity of the nasal bridge, stable in alignment in the interval. There is a right medial orbital wall fracture deformity is seen on series 9, image 40. This is stable compared to the more recent head CT. There is no left maxillary sinus fracture to explain the intrasinus fluid. There had been fluid on the prior facial CT. Consider sinusitis, potentially related to periapical abscess of a left maxillary premolar. Generally extremely poor dentition with few remaining teeth. Right facial and perimandibular soft tissue swelling. No mandible fracture. No retrobulbar hematoma. IMPRESSION: No acute fracture. Left maxillary sinus fluid may reflect sinusitis, potentially related to periapical abscess of the left maxillary premolar. Right facial swelling.
[2020-02-07 13:11] LABS: INR 1.5 (0.9-1.1)
[2020-02-07 13:14] LABS: ALANINE AMINOTRANSFERASE 69 U/L (12-78); ALBUMIN 2.3 G/DL (3.4-5.0); ALBUMIN/GLOBULIN RATIO 0.5 (1.0-2.7); ALKALINE PHOSPHATASE 236 U/L (46-116); ASPARTATE AMINO TRANSFERASE 127 U/L (15-37)
[2020-02-07 13:16] LABS: BILIRUBIN,DIRECT 1.5 MG/DL (0.0-0.3)
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
--- NOTE | 2020-02-07 13:33 | Diagnostic Imaging Report ---
EXAM: XR Chest, 1 View CLINICAL HISTORY: COUGH TECHNIQUE: Frontal view of the chest. COMPARISON: CXR of 06/23/[address] cervical spine from today FINDINGS: Lungs/pleural space: Right hemithoracic opacification. There was a clear pleural effusion at the apex on the cervical spine CT. Cannot exclude coexisting basilar consolidation. Heart: Unremarkable. No cardiomegaly. Mediastinum: Unremarkable. Bones/joints: Degenerative changes of the spine and shoulders. IMPRESSION: Right hemithoracic opacification. There was a clear pleural effusion at the apex on the cervical spine CT. Cannot exclude coexisting basilar consolidation.
[2020-02-07] MEDS ORDERED: Hydrogen Peroxide 473ml Bottle TOPIC ONE ×2 (13:40→13:45)
--- NOTE | 2020-02-07 13:49 | NUR ---
ED Nurse Note: RN cleansed pt's face with hydrogen peroxide/NS, patted dry. RN also suctioned blood from pt's mouth. Pt is AAO x4 with no respiratory distress.
[2020-02-07] MEDS ORDERED: ceFAZolin 2gm/50ml Premix 50 ML IVPB SCH (14:00)
[2020-02-07 14:10] VITALS: BP 144/78
[2020-02-07] MEDS ORDERED: Unasyn 3gm Inj IV ONE (14:15)
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
--- NOTE | 2020-02-07 15:35 | NUR ---
ED Nurse Note: covid19 swab sent.
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
[2020-02-07] MEDS: Ampicillin/Sulbactam Sod 3 GM in NS 110 ML IVPB SCH (18:00)
[2020-02-07] MEDS: chlordiazePOXIDE 25mg Cap ORAL SCH (18:00)
--- NOTE | 2020-02-07 19:45 | NUR ---
HAND-OFF: Report given to ANDREA Gonsales. Patient's stable,plan of care endorsed.
--- NOTE | 2020-02-07 19:50 | NUR ---
NURSE NOTES: Received pt from ANDREA Antunez. Pt asleep but easily aroused. Bed in lowest position. Call light within reach. Will continue to monitor.
[2020-02-07 20:00] VITALS: BP 150/77
[2020-02-07] MEDS ORDERED: Heparin 5000 units/ml inj SUBQ SCH (21:00)
[2020-02-07] MEDS: Doxycycline Monohydrate 100mg ORAL SCH (21:26)
[2020-02-07] MEDS: Phenytoin 100mg cap ORAL SCH (21:26)
[2020-02-07] MEDS: ceFAZolin 2gm/50ml Premix 50 ML IVPB SCH (21:27)
[2020-02-08] VITALS: BP 143/69
[2020-02-08] MEDS: Ampicillin/Sulbactam Sod 3 GM in NS 110 ML IVPB SCH ×4 (00:27→20:00)
[2020-02-08 04:00] VITALS: BP 133/71
[2020-02-08] MEDS: ceFAZolin 2gm/50ml Premix 50 ML IVPB SCH ×3 (06:20→23:02)
[2020-02-08 06:54] LABS: HEMATOCRIT 36.5 % (42.0-52.0); HEMOGLOBIN 11.9 G/DL (14.2-18.0); MEAN CORPUSCULAR VOLUME 97 FL (80-99); PLATELET COUNT 58 K/UL (150-450); RED BLOOD COUNT 3.77 M/UL (4.70-6.10); WHITE BLOOD COUNT 5.6 K/UL (4.8-10.8)
[2020-02-08 07:38] LABS: ALANINE AMINOTRANSFERASE 57 U/L (12-78); ALBUMIN 2.2 G/DL (3.4-5.0); ALBUMIN/GLOBULIN RATIO 0.5 (1.0-2.7); ALKALINE PHOSPHATASE 233 U/L (46-116); ANION GAP 7 mmol/L (5-15); ASPARTATE AMINO TRANSFERASE 105 U/L (15-37); BILIRUBIN,TOTAL 3.4 MG/DL (0.2-1.0); BLOOD UREA NITROGEN 7 mg/dL (7-18); CARBON DIOXIDE 27 MMOL/L (21-32); CHLORIDE 105 MMOL/L (98-107); CREATININE 0.8 MG/DL (0.55-1.30); POTASSIUM 3.8 MMOL/L (3.5-5.1); SODIUM 139 MMOL/L (136-145)
[2020-02-08 07:55] LABS: BILIRUBIN,DIRECT 1.4 MG/DL (0.0-0.3)
[2020-02-08 08:00] VITALS: BP 147/83
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
--- NOTE | 2020-02-08 08:35 | NUR ---
NURSE NOTES: Called and left a message with Dr. Goodwin regarding pts abnormal labs. Awaiting call back.
[2020-02-08] MEDS: Doxycycline Monohydrate 100mg ORAL SCH ×2 (09:32→23:00)
[2020-02-08] MEDS: chlordiazePOXIDE 25mg Cap ORAL SCH ×3 (09:32→21:00)
[2020-02-08] MEDS: Phenytoin 100mg cap ORAL SCH ×2 (09:32→23:00)
[2020-02-08] MEDS: Thiamine 100mg tab ORAL SCH (09:33)
[2020-02-08] MEDS: HYDROcodone/Acetamin 5/325 tab ORAL PRN ×2 (09:37→17:11)
--- NOTE | 2020-02-08 12:01 | NUR ---
HAND-OFF: Report given to ANDREA Nelson. Pt stable.
--- NOTE | 2020-02-08 12:51 | NUR ---
BEDSIDE SWALLOW EVAL (formal report to follow) QUANTITATIVE ASSOCIATE BEDSIDE SWALLOW EVALUATION ORDERS RECEIVED FROM DR. HAYS. INITIAL IMPRESSIONS: MILD OROPHARYNGEAL PHASE DYSPHAGIA COMPOUNDED BY DENTAL ABSCESS EXACERBATED BY RIGHT FACIAL SWELLING/PAIN WITH REDUCED ORAL MOTOR ROM AND COORDINATION, PROLONGED AND REDUCED ORAL PREPARATION AND OROPHARYNGEAL TRANSIT TIMES, LARYNGEAL ELEVATION APPEARS SLIGHTLY REDUCED AND SUSPECT REDUCED PHARYNGEAL SENSATION. NO OVERT S/S OF ASPIRATION WITH COLD THIN LIQUIDS OR PUREE SOLIDS. OVERT S/S OF ASPIRATION WITH ROOM TEMPERATURE WATER. PATIENT HAS RISK FOR ASPIRATION GIVEN SUSPECT REDUCED PHARYNGEAL SENSATIONS AND TRAUMA RESULTING IN PAINFUL SWALLOWING/MASTICATION. PO TRIALS -APPLE JUICE VIA TSP WITH NO OVERT S/S OF ASPIRATION, INCOMPLETE LABIAL SEAL DUE TO SWELLING, LARYNGEAL ELEVATION APPEARS REDUCED UPON PALPATION. -THIN LIQUIDS (ROOM TEMP WATER) RESULTING IN IMMEDIATE OVERT S/S OF ASPIRATION, ANTERIOR SPILLAGE OF LIQUIDS OVER LIPS, STRONG COUGH RESPONSE. -ICE COLD THIN LIQUIDS RESULTING IN NO OVERT S/S OF ASPIRATION. -PUREE SOLIDS RESULTING IN NO OVERT S/S OF ASPIRATION, REDUCED A-P TRANSIT OF BOLUS, TRACE ORAL RESIDUALS PT CLEARED WITH SECOND SWALLOW. PATIENT UNABLE TO CONSUME SOLIDS CONSISTENCIES AT THIS TIME DUE TO FACIAL SWELLING/PAIN RESULTING IN NO ABILITY TO MASTICATE FOOD. RECOMMENDATIONS: 1. PUREE SOLIDS WITH THIN LIQUIDS; NO STRAWS, DISPOSABLE TRAY; PLEASE SEND EXTRA ICE WITH MEALS. --->PATIENT REPORTS ANY FOODS WITH SALT CAUSE PAIN IN ORAL CAVITY/BOT. --->MAY NEED NO SALT ADDED DIET?? DEFER TO RD. 2. ENCOURAGE ORAL CARE/HYGIENE S/P ALL MEALS DUE TO TRACE RESIDUALS OF FOOD IN ORAL CAVITY S/P PO. 3. QUANTITATIVE ASSOCIATE TO F/U 4-5X A WEEK X 1 WEEK. QUANTITATIVE ASSOCIATE EDUCATED PATIENT AND RN ON RESULTS, RECOMMENDATIONS, AND PLAN. WILL F/U FOR DYSPHAGIA TX/MANAGEMENT AND PATIENT AND CAREGIVER EDUCATION AND TRAINING. THANK YOU FOR THIS REFERRAL! QUANTITATIVE ASSOCIATE [id number]
[2020-02-08 13:00] VITALS: BP 136/81
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
[2020-02-08 16:36] VITALS: BP 138/83
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
[2020-02-08 20:00] VITALS: BP 133/74
[2020-02-09] VITALS (7 sets, daily range): BP systolic 118–135; BP diastolic 60–79
[2020-02-09] MEDS: Ampicillin/Sulbactam Sod 3 GM in NS 110 ML IVPB SCH ×5 (00:05→23:53)
[2020-02-09] MEDS: HYDROcodone/Acetamin 5/325 tab ORAL PRN ×2 (00:47→09:26)
--- NOTE | 2020-02-09 01:30 | NUR ---
NURSE NOTES: Received pt from tele nurse ANDREA Gregg. Pt is A&Ox4 and verbal. No sob,fever,cough and pain at the moment. Iv is intact and asymptomatic. Bed in the lowest position,locked, alarm on, and seizure precautions applied. Call light within reach. We will keep monitoring the pt.
[2020-02-09] MEDS: ceFAZolin 2gm/50ml Premix 50 ML IVPB SCH ×3 (05:58→21:26)
--- NOTE | 2020-02-09 07:25 | NUR ---
HAND-OFF: Report given to ANDREA Bautista..
--- NOTE | 2020-02-09 07:51 | NUR ---
NURSE NOTES: received report from ANDREA Rosa. patient in bed. a&ox4, verbally responsive. no respiratory distress noted. discomfort on swollen face. IV on LAC saline lock. intact. bed rest. COVID 19 test resulted was negative. notified Christa XIE and received order DC isolation. notified Radiology main desk that patient dc isolation. need f/u VD and US Thoracentesis. bed in the lowest position and locked. call light within reach. will continue to provide plan of care.
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
[2020-02-09] MEDS: Thiamine 100mg tab ORAL SCH (09:16)
[2020-02-09] MEDS: Phenytoin 100mg cap ORAL SCH ×2 (09:16→21:26)
[2020-02-09] MEDS: Doxycycline Monohydrate 100mg ORAL SCH ×2 (09:16→21:26)
[2020-02-09] MEDS: chlordiazePOXIDE 25mg Cap ORAL SCH ×3 (09:17→17:17)
--- NOTE | 2020-02-09 10:00 | NUR ---
NURSE NOTES: US Omayra asking order of PT, PTT for Thoracentesis on 02/10/20. notified Dr. Goodwin and left message. waiting for further order.
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
--- NOTE | 2020-02-09 12:07 | Diagnostic Imaging Report ---
Indication: Reason For Exam: FALL Technique: Grayscale and duplex images of the bilateral lower extremity veins Comparison: Findings: Bilaterally, grayscale and duplex images demonstrate no evidence of intraluminal thrombus. Normal phasic Doppler waveforms, demonstrating normal augmentation response. A small amount of reflux is seen in the bilateral popliteal veins. Greater saphenous vein(s) and tibial veins are patent. Normal compressibility. Impression: Negative for evidence of lower extremity deep venous thrombosis bilaterally Mild bilateral popliteal vein reflux
--- NOTE | 2020-02-09 13:20 | NUR ---
ST NOTE SWALLOW STATUS Patient being seen for dysphagia tx and management, is alert and just finished consuming lunchtime meal. Per Patient, during PO medication management, Patient experienced difficulty when attempting to swallow a pill, reports pill would not 'go down,' Patient implemented multiple swallows, alternating liquids and solids, and eventually was able to swallow entire pill. Patient reporting +8/10 pain on right side of neck, on right cheek, and in mouth; made RN aware. VITALS ON ROOM AIR: HR: 88; RR: 20; SP02 96% Patient was educated and trained on safe swallow compensatory strategies: -Alternate liquids and solids -Small bites and slow rate -No straws -Swallow hard/fast -Maintain upright position during PO and for 30 minutes after. Patient also educated on implementing throat clear and re-swallow to minimize risk of aspiration. Patient continues to be safe on Moist Puree and thin liquids with no straws diet texture. no overt s/s of aspiration with cold thin liquids with ice during treatment session. RECOMMENDATIONS: 1. Continue Moist Puree Solids with Thin Liquids; No straws. --->Please crushed Medications and give with apple sauce or juice. 2. Please continue to encourage Patient to complete oral care/hygiene. 3. DECK LID FITTER will continue to f/u per POC, Patient may benefit from MBSS tomorrow. DECK LID FITTER [phone]
--- NOTE | 2020-02-09 14:00 | NUR ---
NURSE NOTES: Nurse spoke to patient's daughter, Genie. ([phone]). she will visit patient later today and she will take the patient to her home upon discharge.
--- NOTE | 2020-02-09 19:29 | NUR ---
HAND-OFF: Report given to ANDREA Forte.
--- NOTE | 2020-02-09 19:30 | NUR ---
NURSE NOTES: Received patient in no apparent distress. A&OX4. IV site patent and intact. Bed in lowest position. Call light within reach. Will continue to monitor.
[2020-02-10] VITALS: BP 130/70
[2020-02-10 04:00] VITALS: BP 138/77
[2020-02-10] MEDS: Ampicillin/Sulbactam Sod 3 GM in NS 110 ML IVPB SCH (05:18)
[2020-02-10] MEDS: ceFAZolin 2gm/50ml Premix 50 ML IVPB SCH (05:52)
--- NOTE | 2020-02-10 07:30 | NUR ---
HAND-OFF: Report given to Jennifer Duque RN.
--- NOTE | 2020-02-10 07:31 | NUR ---
NURSE NOTES: Received patient in bed, awake, not in respiratory/cardiac distress. IV is intact, no s/s of infiltration. Bed is in lowest position and locked. Patient is scheduled for US guided thoracentesis. Patient is aware. Will continue plan of care.
[2020-02-10 08:00] VITALS: BP 123/71
[2020-02-10] MEDS: Thiamine 100mg tab ORAL SCH (08:36)
[2020-02-10] MEDS: Doxycycline Monohydrate 100mg ORAL SCH ×2 (08:36→21:52)
[2020-02-10] MEDS: Phenytoin 100mg cap ORAL SCH ×2 (08:36→21:52)
[2020-02-10] MEDS: chlordiazePOXIDE 25mg Cap ORAL SCH ×3 (08:36→17:27)
[2020-02-10 08:51] LABS: HEMOGLOBIN 11.6 G/DL (14.2-18.0); MEAN CORPUSCULAR VOLUME 98 FL (80-99); PLATELET COUNT 61 K/UL (150-450); RED BLOOD COUNT 3.55 M/UL (4.70-6.10); WHITE BLOOD COUNT 5.9 K/UL (4.8-10.8)
[2020-02-10 09:20] LABS: INR 1.7 (0.9-1.1)
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
--- NOTE | 2020-02-10 11:00 | NUR ---
STOCKBROKING DEALER NOTE Per nursing note, pt's daughter wanted to provide housing for pt upon DC. Pt provided verbal consent to contact his daughter, Marian [phone]. SW spoke w/ Marian and confirmed that there will be extra room available at her ex-'s house. Marian is currently residing in [place], [place]. Marian plans to return to [place] today. PT will be discharged to [address] [place] [id number]. Pt agreed w/ such DC plan.
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
[2020-02-10] MEDS ORDERED: Varibar Nectar 240ml MC PRN (11:45)
[2020-02-10] MEDS ORDERED: Varibar Pudding 230ml MC PRN (11:45)
[2020-02-10] MEDS ORDERED: Varibar Honey 250ml MC PRN (11:45)
[2020-02-10 12:00] VITALS: BP 138/76
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
--- NOTE | 2020-02-10 13:40 | NUR ---
ST NOTE UPDATE:Unable to complete MBSS today due to Patient scheduled to have procedure completed, will attempt to complete February 11 if Patient is still in house. Ok to discharge Patient prior to completing. Patient would benefit from MBSS as an outpatient if Patient continues to experience odynophagia and/or Globus Sensations. WIND ENERGY ENGINEER will continue to f/u while Patient is still in house. WIND ENERGY ENGINEER [phone]
--- NOTE | 2020-02-10 14:20 | NUR ---
NURSE NOTES: Patient is off the unit for US guided thoracentesis.
--- NOTE | 2020-02-10 14:44 | NUR ---
RADIOLOGY DEPT., CHEST X-RAY POST THORACENTHESIS HAS BEEN PERFORMED.-P.DYE
--- NOTE | 2020-02-10 15:01 | Pre-Procedure Note/Attestation ---
Pre-Procedure Note/Attestation Complete Prior to Procedure Planned Procedure: right Procedure Narrative: thoracentesis Indications for Procedure Pre-Operative Diagnosis: pleural effusion Attestation I attest that I discussed the nature of the procedure; its benefits; risks and complications; and alternatives (and the risks and benefits of such alternatives ), prior to the procedure, with the patient (or the patient's legal telephone service representative). I attest that, if there was a reasonable possibility of needing a blood transfusion, the patient (or the patient's legal telephone service representative) was given the [facility] standardized written summary, pursuant to the [place] Blood Safety Act ([place] Health and Safety Code # 1645, as amended). I attest that I re-evaluated the patient just prior to the surgery and that there has been no change in the patient's H&P, except as documented below: Darryl Perze MD Feb 10, 2020 15:01
--- NOTE | 2020-02-10 15:02 | Brief Operative Note ---
Immediate Post Operative Note Operative Note Pre-op Diagnosis: pleural effusion Procedure: Thoracentesis Post-op Diagnosis: same as pre-op Surgeon: Linda Marcus Anesthesia: local Specimen: yes - 50 ml fluid sent to lab Complications: none Fluids: none Implant(s) used?: No Darryl Perez MD Feb 10, 2020 15:02
--- NOTE | 2020-02-10 15:08 | Diagnostic Imaging Report ---
Indications: Pleural effusion Technique: Ultrasound used to localize optimal puncture site. Sterile prepping and draping right chest. Local anesthesia with 1% lidocaine. Under real-time ultrasound guidance, puncture pleural space using thoracentesis needle. Stylet removed. Catheter placed to vacuum bottle suction. Total 1050 milliliters of fluid aspirated. Patient tolerated procedure well, without immediate complication. Findings: Followup sonography demonstrates near complete resolution of pleural fluid. Impression: Successful ultrasound-guided thoracentesis, yielding 1050 milliliters of fluid
--- NOTE | 2020-02-10 15:10 | Diagnostic Imaging Report ---
Indication: History of pleural effusion, history of shortness of breath, status post thoracentesis Technique: One view of the chest Comparison: 02/07/2020 Findings: Interim resolution of previously demonstrated right pleural effusion. No pneumothorax is evident. No infiltrates, effusions, or congestion currently the heart size is upper limits normal Impression: Resolved right pleural effusion, status post thoracentesis. No radiographically evident complication
--- NOTE | 2020-02-10 15:45 | NUR ---
NURSE NOTES: Patient came back from the procedure in stable condition. Per Omayra, 1.05L was removed from thoracentesis and specimen was sent out from US. No bleeding from the puncture site.
[2020-02-10 16:00] VITALS: BP 144/72
[2020-02-10] MEDS ORDERED: NS 275ml ONE (17:52)
[2020-02-10] MEDS ORDERED: Tubing IV Secondary IV ONE (17:52)
--- NOTE | 2020-02-10 19:30 | NUR ---
NURSE NOTES: Patient awake in bed, with pain on the face, will medicate as ordered. On room air, no SOB noted. With IV on the left arm. Instructed to use call light for assistance. Bed in lowest, lock engaged and alarm on. Will continue to monitor.
--- NOTE | 2020-02-10 19:45 | NUR ---
HAND-OFF: Report given to Suhail and endorsed plan of care, patient has no episodes of bleeding from puncture site.
[2020-02-10 20:00] VITALS: BP 125/74
[2020-02-10] MEDS: Augmentin 875mg Tab ORAL SCH (21:52)
[2020-02-11] VITALS: BP 128/69
[2020-02-11 04:00] VITALS: BP 117/65
--- NOTE | 2020-02-11 07:35 | NUR ---
NURSE NOTES: RECEIVED PATIENT A/A/OX4, VERBALLY RESPONSIVE. ABLE TO MAKE NEEDS KNOWN. PATIENT IS ON PUREED MOIST DUE TO DIFFICULTY SWALLOWING. HOB ELEVATED FOR ASPIRATION PRECAUTION. DENIES OF PAIN/DISCOMFORT NOTED. BED IN THE LOWEST POSITION. SIDERAILS ARE UPX3. CALL LIGHT IS WITHIN REACH. BRAKES ARE ENGAGED AND LOCK @ ALL TIMES. WILL CONT TO MONITOR.
[2020-02-11 08:00] VITALS: BP 122/68
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
[2020-02-11] MEDS ORDERED: AMOX TR-K CLV1 EAC2 ORAL (08:14)
[2020-02-11] MEDS: Thiamine 100mg tab ORAL SCH (08:23)
[2020-02-11] MEDS: Phenytoin 100mg cap ORAL SCH (08:23)
[2020-02-11] MEDS: Doxycycline Monohydrate 100mg ORAL SCH (08:23)
[2020-02-11] MEDS: Augmentin 875mg Tab ORAL SCH (08:23)
[2020-02-11] MEDS: chlordiazePOXIDE 25mg Cap ORAL SCH ×2 (08:24→13:52)
--- NOTE | 2020-02-11 10:44 | NUR ---
NURSE NOTES: SPOKE WITH JR, DAUGHTER AND ABLE TO PICK PATIENT THIS AFTERNOON @ 1600H HER CONVENIENT TIME. HOME ADDRESS PROVIDED WHERE PATIENT WILL BE RESIDING @ [address] [place] [address]. WILL CONT TO MONITOR.
[2020-02-11 12:00] VITALS: BP_SYST 131; BP_SYST 159; BP_DIAS 73; BP_DIAS 75
[2020-02-11] MEDS: HYDROcodone/Acetamin 5/325 tab ORAL PRN (14:55)
--- NOTE | 2020-02-11 15:30 | NUR ---
CASE MANAGEMENT:REVIEW 02/11/20 DISCHARGE HOME WITH DAUGHTER
[2020-02-11 16:00] VITALS: BP 126/66
--- NOTE | 2020-02-11 16:00 | NUR ---
NURSE NOTES: DISCHARGE HOME WITH INSTRUCTIONS. HOME ADDRESS VERIFIED. SEEN BY OTJOSE ARMANDO PRIOR DISCHARGE. PERSONAL BELONGINGS NOTED. RX GIVEN TO THE PATIENT. NO ACUTE RESP DISTRESS NOTED. REMOVED IV ACCESS.
--- NOTE | 2020-02-11 16:31 | NUR ---
SWALLOW STATUS/DISCHARGE SUMMARY PATIENT SEEN AT BEDSIDE. D/C IS PENDING LATER THIS AFTERNOON. REVIEWED SWALLOW PRECAUTIONS WITH PATIENT AND HE CONTINUED TO COMPLAIN OF GLOBUS POST SWALLOW MEDICATION. ENCOURAGED HIM TO CONTINUE CRUSHING CRUSHABLE MEDICATION WHEN HE RETURNS HOME WITH FAMILY. HE CONCURRED/VERBALIZED UNDERSTANDING. AN EXAMINATION OF HIS LINGUAL SURFACE INDICATED WHITE PATCHES BILATERALLY. PATIENT COMPLAINED ALSO OF PAINFUL SWALLOW. D/W RN JHONATAN WHO AGREED TO EVALUATE PATIENT FOR THRUSH. PATIENT IS DISCHARGED FROM [facility].
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
== END 2020-02-11 18:00 | disposition home or self-care (01) | DRG 384 ==
LOC: EDBD 12:06 → EMR 12:40 → 2E 13:43 → EDBEDREQ 15:59 → 4E 02-09 00:35 → UNDODISIN 02-11 15:57
PROC: 0W993ZZ Drainage of Right Pleural Cavity, Percutaneous Approach (ICD-10-PCS; principal; 2020-02-10)
DX: S00.81XA Abrasion of other part of head, initial encounter (principal); R04.0 Epistaxis; L03.211 Cellulitis of face; J18.9 Pneumonia, unspecified organism; F10.20 Alcohol dependence, uncomplicated; I10 Essential (primary) hypertension; D64.9 Anemia, unspecified; K04.6 Periapical abscess with sinus; G40.909 Epilepsy, unspecified, not intractable, without status epilepticus; I45.81 Long QT syndrome; D69.6 Thrombocytopenia, unspecified; J90 Pleural effusion, not elsewhere classified; J32.0 Chronic maxillary sinusitis; K02.9 Dental caries, unspecified; D61.818 Other pancytopenia; S02.2XXD Fracture of nasal bones, subsequent encounter for fracture with routine healing; S02.85XD Fracture of orbit, unspecified, subsequent encounter for fracture with routine healing; X58.XXXD Exposure to other specified factors, subsequent encounter; K04.7 Periapical abscess without sinus; R74.0 Nonspecific elevation of levels of transaminase and lactic acid dehydrogenase [LDH]; R56.9 Unspecified convulsions
CPT/HCPCS: 36415; 70450; 70486; 71045; 72125; 76942; 80053; 82248; 83690; 83735; 83880; 84484; 85007; 85025; 85610; 85730; 89050; 90471; 90715; 93005; 93970; 96365; 96366; 96368; 96375; 99291; J2405